=== PATIENT | male | born 1980 | race African-American/Black ===

== ENCOUNTER 2018-12-18 13:48 | Emergency (ER) | payer OTHER ==
[2018-12-18] MEDS: ONDANSETRON 4 MG INJ IV (14:30)
[2018-12-18] MEDS: HYDROmorphONE 0.5 MG/0.5 ML SYG IV ×3 (14:30→16:10)
[2018-12-18] MEDS: SOD CHLORIDE 0.9% 1,000 ML IV (14:30)
[2018-12-18 14:36] LABS: ADD MAN DIFF? NO
[2018-12-18 14:40] LABS: BASOPHILS % 0.3 % (0.0-2.0); EOSINOPHILS % 0.2 % (0.0-7.0); HEMATOCRIT 41.1 % (42.0-52.0); HEMOGLOBIN 13.9 g/dl (14.0-18.0); LYMPHOCYTES # 1.8 10^3/ul (0.8-2.9); LYMPHOCYTES % 15.6 % (15.0-51.0); MEAN CORPUSCULAR HEMOGLOBIN 30.2 pg (29.0-33.0); MEAN CORPUSCULAR HGB CONC 33.8 g/dl (32.0-37.0); MEAN CORPUSCULAR VOLUME 89.2 fl (82.0-101.0); MEAN PLATELET VOLUME 8.9 fl (7.4-10.4); MONOCYTE # 0.5 10^3/ul (0.3-0.9); MONOCYTES % 4.4 % (0.0-11.0); NEUTROPHILS % 79.1 % (39.0-77.0); PLATELET COUNT 394 10^3/UL (140-415); RED BLOOD COUNT 4.61 10^6/ul (4.70-6.10); RED CELL DISTRIBUTION WIDTH 13.9 % (11.5-14.5)
[2018-12-18 14:40] LABS: WHITE BLOOD COUNT 11.4 10^3/ul (4.8-10.8)
[2018-12-18 14:57] LABS: ALANINE AMINOTRANSFERASE 20 IU/L (13-69); ALBUMIN 4.7 g/dl (3.3-4.9); ALBUMIN/GLOBULIN RATIO 1.46; ALKALINE PHOSPHATASE 89 IU/L (42-121); ANION GAP 11 (5-13); ASPARTATE AMINO TRANSFERASE 17 IU/L (15-46); BILIRUBIN,INDIRECT 0.5 mg/dl (0-1.1); BILIRUBIN,TOTAL 0.5 mg/dl (0.2-1.3); BLOOD UREA NITROGEN 12 mg/dl (7-20); CALCIUM 10.6 mg/dl (8.4-10.2); CARBON DIOXIDE 22 mmol/L (21-31); CHLORIDE 112 mmol/L (97-110); CREATININE 0.83 mg/dl (0.61-1.24); Estimated GFR > 60 mL/min (>60); GLUCOSE 111 mg/dl (70-220); LIPASE 93 U/L (23-300); POTASSIUM 3.8 mmol/L (3.5-5.1); SODIUM 145 mmol/L (135-144); TOTAL PROTEIN 7.9 g/dl (6.1-8.1)
[2018-12-18 15:11] LABS: URINE BLOOD (Dip) POC 1+ (NEGATIVE); URINE GLUCOSE (Dip) POC Negative (NEGATIVE); URINE KETONES (Dip) POC 1+ (NEGATIVE); URINE LEUKOCYTE EST (Dip) POC Negative (NEGATIVE); URINE NITRITE (Dip) POC Negative (NEGATIVE); URINE TOTAL PROTEIN POC 1+ (NEGATIVE)
[2018-12-18 15:11] LABS: URINE PH (Dip) POC 8.5 (5.0-8.5)
[2018-12-18] MEDS: METOCLOPRAMIDE 10 MG INJ IV (15:20)
[2018-12-18 15:35] LABS: ETHANOL < 10.0 mg/dl (0-0)
[2018-12-18 16:00] LABS: AMPHETAMINE/METHAMPHETAMINE NEGATIVE (NEGATIVE); BARBITURATES NEGATIVE (NEGATIVE); BENZODIAZEPINES NEGATIVE (NEGATIVE); CANNABINOIDS POSITIVE (NEGATIVE); COCAINE NEGATIVE (NEGATIVE); OPIATES NEGATIVE (NEGATIVE)
[2018-12-18] MEDS: LORAZEPAM 2 MG INJ IV (16:11)
[2018-12-18] MEDS: LIDOCAINE/MYLANTA 40 ML BTL PO (17:17)
== END 2018-12-18 17:49 | disposition home or self-care (01) ==
LOC: E/R 13:48
DX: G43.A0 Cyclical vomiting, in migraine, not intractable (principal); K31.84 Gastroparesis
CPT/HCPCS: 36415; 74176; 80053; 80307; 81003; 83690; 85025; 96374; 96375; 96376; 99285-25